=== PATIENT | male | born 1990 | race Caucasian/White ===

== ENCOUNTER 2021-11-20 17:02 | Outpatient (CLI) | payer OTHER | END 2021-11-20 17:03 | disposition home or self-care (01) | LOC: MADLAB 17:02 | PROVIDERS: ATTEND Family Medicine | DX: R00.0 Tachycardia, unspecified (principal) | CPT/HCPCS: 93005; 93010 ==

== ENCOUNTER 2023-05-31 13:04 | Emergency (ER) | payer OTHER ==
[2023-05-31] MEDS ORDERED: Boostrix 0.5 ML (Tdap) VIAL (>/=7 yrs of age) ONE (13:28)
== END 2023-05-31 14:06 | disposition home or self-care (01) ==
LOC: MADERS 13:04
DX: S69.92XA Unspecified injury of left wrist, hand and finger(s), initial encounter (principal); E78.00 Pure hypercholesterolemia, unspecified; I10 Essential (primary) hypertension; F17.220 Nicotine dependence, chewing tobacco, uncomplicated; Z23 Encounter for immunization; W22.8XXA Striking against or struck by other objects, initial encounter
CPT/HCPCS: 90471; 90715